=== PATIENT | female | born 1970 | race Caucasian/White ===

== ENCOUNTER 2016-03-29 13:49 | Observation (INO) | payer MEDICAID ==
[~2016-03-29] VITALS: Ht 165.1 cm; Wt 103.9 kg
[2016-03-29] MEDS ORDERED: LIDOCAINE 2% 20 ML INTRADERM ONE (16:21)
[2016-03-29] MEDS ORDERED: SOD BICARB 8.4% VIAL 50 ML IV ONE (16:21)
[2016-03-29] MEDS ORDERED: ONDANSETRON 4 MG VIAL IV PUSH PRN (17:45)
[2016-03-29] MEDS ORDERED: ACETAMINOPHEN 325 MG TAB PO PRN (17:45)
[2016-03-29] MEDS: SOD CHLOR 0.9% 1000 ML IV SCH (18:01)
[2016-03-29 18:02] VITALS: BP_SYST 118; RESP 18; TEMP 97
[2016-03-29 18:03] VITALS: Ht 165.1 cm; Wt 103.9 kg
[2016-03-29 19:29] VITALS: BP_SYST 88; RESP 18; TEMP 97.3
[2016-03-29] MEDS: DUONEB INH PRN (20:30)
[2016-03-29 23:05] VITALS: BP_SYST 103; RESP 18; TEMP 98.2
[2016-03-30 03:44] VITALS: BP_SYST 111; RESP 18; TEMP 97.5
[2016-03-30 07:33] VITALS: BP_SYST 109; RESP 24; TEMP 97.3
[2016-03-30] MEDS: DUONEB INH PRN (10:54)
[2016-03-30 10:57] VITALS: BP_SYST 104; RESP 16; TEMP 97.6
[2016-03-30] MEDS: SOD CHLOR 0.9% 1000 ML IV SCH (11:12)
[2016-03-30 14:21] VITALS: BP_SYST 104; RESP 16; TEMP 97.6
== END 2016-03-30 10:15 | disposition home or self-care (01) ==
LOC: ENRESERVDT → ENRESERVTM → ER 13:49 → ENPENDDIS 16:20 → EMR 16:20 → 4NT 17:37
PROVIDERS: ADMIT Internal Medicine Nephrology; ATTEND Internal Medicine Nephrology
CPT/HCPCS: 36415; 49083; 80048; 80053; 81003; 83690; 84703; 85025; 85610; 85730; 94640; 96360

== ENCOUNTER 2016-04-22 23:31 | Emergency (ER) | payer MEDICAID ==
[2016-04-23] MEDS ORDERED: ONDANSETRON 4 MG VIAL ONE (01:36)
[2016-04-23] MEDS ORDERED: MORPHINE 4 MG/ML SYR ONE (01:37)
[2016-04-23] MEDS ORDERED: LIDOCAINE 1% MDV 20 ML ONE (03:30)
== END 2016-04-23 06:49 | disposition home or self-care (01) ==
LOC: ER 23:31
DX: R10.9 Unspecified abdominal pain (principal); R11.2 Nausea with vomiting, unspecified; Z86.2 Personal history of diseases of the blood and blood-forming organs and certain disorders involving the immune mechanism; E11.9 Type 2 diabetes mellitus without complications; R06.02 Shortness of breath
CPT/HCPCS: 36415; 71010; 80053; 81003; 83690; 85025; 85610; 85730; 87071; 87205; 89051; 96374; 96375